=== PATIENT | male | born 1950 | race Caucasian/White ===

== ENCOUNTER → 2017-12-22 | Outpatient (CLI) | payer OTHER | END | disposition home or self-care (01) | LOC: CFH 13:32 | PROVIDERS: ATTEND Internal Medicine Cardiovascular Disease | DX: I34.0 Nonrheumatic mitral (valve) insufficiency (principal); I35.8 Other nonrheumatic aortic valve disorders; I10 Essential (primary) hypertension; E78.5 Hyperlipidemia, unspecified | CPT/HCPCS: 93306 ==

== ENCOUNTER 2018-01-05 07:45 | Day surgery (SDC) | payer MEDICARE, OTHER ==
[~2018-01-05] VITALS: Ht 172.7 cm; Wt 82.0 kg
[2018-01-05] MEDS ORDERED: SODIUM CHLORIDE 0.9% 500 ML IV PRN (08:04)
[2018-01-05 08:08] VITALS: BP 143/88
[2018-01-05] MEDS ORDERED: MULT-508 PO (08:22)
[2018-01-05] MEDS ORDERED: ASPI-515 PO (08:22)
[2018-01-05] MEDS ORDERED: ROSU20TA PO (08:22)
[2018-01-05] MEDS ORDERED: APIX5TAB PO (08:22)
[2018-01-05] MEDS ORDERED: LISI40TA PO (08:22)
[2018-01-05 08:35] LABS: BASOPHILS # (AUTO) 0.03 x10^3/uL (0-0.1); BASOPHILS % (AUTO) 0 % (0-1); EOSINOPHILS # (AUTO) 0.06 x10^3/uL (0-0.4); EOSINOPHILS % (AUTO) 1 % (1-7); LYMPHOCYTES # (AUTO) 2.12 x10^3/uL (1-3.4); LYMPHOCYTES % (AUTO) 27 % (22-44); MD NO; MEAN CORPUSCULAR HEMOGLOBIN 33.9 pg (27.5-34.5); MEAN CORPUSCULAR VOLUME 99.7 fL (81-97); MEAN PLATELET VOLUME 9.2 fL (7.4-10.4); MONOCYTES # (AUTO) 0.48 x10^3/uL (0.2-0.8); MONOCYTES % (AUTO) 6 % (2-9); NEUTROPHILS % (AUTO) 66 % (42-75); PLATELET COUNT 213 x10^3/uL (130-400); RED BLOOD COUNT 4.45 x10^6/uL (4.38-5.82); RED CELL DISTRIBUTION WIDTH 12.9 % (9.4-14.8)
[2018-01-05 08:46] LABS: ANION GAP 9 mmol/L (5-15); CALCIUM 9.2 mg/dL (8.5-10.1); CHLORIDE 106 mmol/L (98-107)
[2018-01-05] MEDS ORDERED: PROPOFOL 10 MG/ML, 20ML ONE (09:45)
== END 2018-01-05 10:43 | disposition home or self-care (01) ==
LOC: CACL 07:45
PROVIDERS: ATTEND Internal Medicine Cardiovascular Disease
DX: I48.91 Unspecified atrial fibrillation (principal); I10 Essential (primary) hypertension; E78.2 Mixed hyperlipidemia; Z72.0 Tobacco use
CPT/HCPCS: 36415; 71046; 80048; 85025; 92960; J2704